=== PATIENT | female | born 2000 | race African-American/Black ===

== ENCOUNTER 2018-08-23 11:27 | Emergency (ER) | payer OTHER ==
[~2018-08-23] VITALS: Ht 162.6 cm; Wt 57.3 kg
--- NOTE | 2018-08-23 13:57 | REP ---
CT of the brain without IV contrast: There are no comparisons. There is no hemorrhage. There is no edema, mass effect or midline shift. The cortical stripe is unremarkable. The visualized paranasal sinuses and mastoid air cells are clear. Impression: There is no hemorrhage, acute infarct or mass. Negative CT study of the brain. Electronically Signed by Narciso Canas MD 08/23/2018 01:48 P
[2018-08-23 14:13] VITALS: BP 130/72
== END 2018-08-23 14:14 | disposition home or self-care (01) ==
LOC: M ED 11:27
DX: F07.81 Postconcussional syndrome (principal)